=== PATIENT | male | born 1995 | race Caucasian/White ===

== ENCOUNTER 2018-07-03 19:18 | Emergency (ER) | payer OTHER ==
[~2018-07-03] VITALS: Ht 185.4 cm; Wt 79.8 kg
--- OUTSIDE RECORDS SUMMARY | ~2018-07-03 | XMS | Clinical Summary ---
Demographics + + + | Address | [address] | | | [place] [address] | + + + | Home Phone | | + + + | Preferred Language | Unknown | + + + | Marital Status | Single | + + + | Episcopal Affiliation | Unknown | + + + | Race | Unknown | + + + | Ethnic Group | Unknown | + + + Author + + + | Author | [facility] | | | and [place] | + + + | Organization | [facility] | | | and [place] | + + + | Address | Unknown | + + + | Phone | Unavailable | + + + Support + + +---------+ + | Name | Relationship | Address | Phone | + + +---------+ + | Damian Mejia | BIB | Unknown | | + + +---------+ + Care Team Providers + +------+ + | Care Fire Technology Instructor Name | Role | Phone | + +------+ + PP | Unavailable | + +------+ + Allergies Not on File Medications Not on file Active Problems Not on file Social History + +-------+ +--------+------+ | Tobacco Use | Types | Packs/Day | Years | Date | | | | | Used | | + +-------+ +--------+------+ | Never Assessed | | | | | + +-------+ +--------+------+ + + + | Sex Assigned at | Date Recorded | | | | + + + | Not on file | | + + + + + + + | Job Start Date | Occupation | Industry | + + + + | Not on file | Not on file | Not on file | + + + + + + + + | Travel History | Travel Start | Travel End | + + + + + + | No recent travel history available. | + + Plan of Treatment + + + + + | Health Maintenance | Due Date | Last Done | Comments | + + + + + | Vaccine: | | | | | Dtap/Tdap/Td (1 - | 3 | | | | Tdap) | | | | + + + + + | Vaccine: Influenza | | | | | (Season Ended) | 9 | | | + + + + + Results Not on filefrom Last 3 Months"
--- OUTSIDE RECORDS SUMMARY | ~2018-07-03 | XMS | Clinical Summary ---
Demographics + + + | Address | [address] | | | [place] [address] | + + + | Home Phone | | + + + | Preferred Language | Unknown | + + + | Marital Status | Single | + + + | Orthodoxy Affiliation | Unknown | + + + | Race | Unknown | + + + | Ethnic Group | Unknown | + + + Author + + + | Author | [facility] | | | and [place] | + + + | Organization | [facility] | | | and [place] [...] Team Providers + +------+ + | Care Greenhouse Specialist Name | Role | Phone | + [...]
[2018-07-03] MEDS ORDERED: NORCO 5-325 TA1 EACH PO (21:49)
== END 2018-07-03 22:21 | disposition home or self-care (01) ==
LOC: ED 19:18
DX: S32.019A Unspecified fracture of first lumbar vertebra, initial encounter for closed fracture (principal); V80.018A Animal-rider injured by fall from or being thrown from other animal in noncollision accident, initial encounter; Z88.0 Allergy status to penicillin
CPT/HCPCS: 72131; 74177; 99283-25; J1170; J2405

== ENCOUNTER 2021-06-07 08:53 | Emergency (ER) | payer BC ==
[~2021-06-07] VITALS: Ht 185.4 cm; Wt 88.7 kg
[~2021-06-07 08:53] MED LIST: NORCO 5-325 TA1 EACH PO
--- OUTSIDE RECORDS SUMMARY | 2021-06-07 09:00 | XMS ---
PreManage Notification: JUAQUIN SIMPSON Security Residential Caregiver Events No recent Security Events currently on file CRITERIA MET - ED - Positive COVID-19 Lab Result - [facility] GAMALIEL SNELL [facility] Medicine: Sports Medicine Current PHONE: [phone] Nicole has no Care Guidelines for this patient. E.D. VISIT COUNT (12 MO.) [address] [facility] TOTAL 3 NOTE: Visits indicate total known visits. ED/UCC VISIT TRACKING (12 MO.) 06/07/2021 08:54 [facility] TYPE: Emergency COMPLAINT: - ABD PAIN, HEADACHE, UNABLE TO EAT, NAUSEA 03/28/2021 20:47 [place] TYPE: Emergency DIAGNOSES: - chest pain - Other chest pain 11/21/2020 17:10 [place] TYPE: Emergency DIAGNOSES: - CHEST PAIN - Pleurisy INPATIENT VISIT TRACKING (12 MO.) No inpatient visits to display in this time frame [email or web address]
[2021-06-07] MEDS ORDERED: DICYCLOMINE HCL20 MG PO (10:16)
[2021-06-07] MEDS ORDERED: ONDANSETRON ODT4 MG PO (10:16)
== END 2021-06-07 10:25 | disposition home or self-care (01) ==
LOC: ED 08:53
DX: K52.9 Noninfective gastroenteritis and colitis, unspecified (principal); Z88.0 Allergy status to penicillin; Z20.822 Contact with and (suspected) exposure to COVID-19
CPT/HCPCS: 36415; 80053; 81001; 83690; 85025; 96374; 96375; 99284-25; C9803; J1885; J2405; J7030; U0003